=== PATIENT | female | born 1960 | race African-American/Black ===

== ENCOUNTER 2018-10-12 22:31 | Inpatient (IN) ==
[2018-10-12] MEDS ORDERED: hydrALAZINE 20 MG/1 ML VIAL IV STA (23:03)
[2018-10-12] MEDS ORDERED: LABETALOL 20 MG/4 ML SYRINGE IV STA (23:03)
[2018-10-13] MEDS ORDERED: ACETAMINOPHEN 325 MG TABLET PO PRN (00:17)
[2018-10-13] MEDS ORDERED: ONDANSETRON 4 MG/2 ML VIAL IV PRN (00:17)
[2018-10-13] MEDS ORDERED: LABETALOL 20 MG/4 ML SYRINGE IV PRN (01:51)
[2018-10-13] MEDS ORDERED: GLUCAGON 1 MG VIAL IM PRN (02:33)
[2018-10-13] MEDS ORDERED: DEXTROSE 50% 25 GM/50 ML VIAL IV PRN (02:33)
[2018-10-13] MEDS: LEVALBUTEROL 1.25 MG/3 ML NEB RESP TX SCH ×4 (02:37→19:36)
[2018-10-13 07:14] LABS: Hematocrit 41.6 VOL% (35.7-47.0); Hemoglobin 12.9 GM/DL (12.0-16.0); Immature Granulocytes % 0.6 %; Immature Granulocytes Absolute 0.05 #; Lymphocytes # 0.9 10*3/uL (1.4-4.0); Mean Corpuscular Volume 87.4 FL (87-102); Monocytes % 1.8 % (1.7-12.7); Neutrophils % 85.6 % (38.7-73.9); Platelet Count 288 T/CUMM (130-400); Red Blood Count 4.76 MC/CUMM (3.8-5.5); Red Cell Distribution Width 13.2 % (9.3-17.3); White Blood Count 7.9 T/CUMM (4-12)
[2018-10-13 07:44] LABS: Albumin 2.9 G/DL (3.4-5.0); Bilirubin,Total 0.7 MG/DL (0.2-1.0); Osmolality,Calculated 289.3 MOS/KG (273-304); Thyroid Stimulating Hormone 0.169 uIU/ml (0.358-3.74); Total Protein 6.7 G/DL (6.4-8.3)
[2018-10-13] MEDS ORDERED: ENOXAPARIN 40 MG/0.4 ML SYRINGE SUBCUT SCH (09:00)
[2018-10-13] MEDS: FUROSEMIDE 20 MG TABLET PO SCH ×2 (09:50→22:09)
[2018-10-13] MEDS: INSULIN REGULAR 100 UNIT/ML SUBCUT SCH ×4 (09:50→22:10)
[2018-10-13] MEDS: PANTOPRAZOLE 40 MG TABLET PO SCH (09:50)
[2018-10-13] MEDS: SPIRONOLACTONE 50 MG TABLET PO SCH ×2 (09:50→22:09)
[2018-10-13] MEDS: DIGOXIN 0.25 MG TABLET PO SCH (09:51)
[2018-10-13] MEDS: amLODIPine 10 MG TABLET PO SCH (09:51)
[2018-10-13] MEDS: THEOPHYLLINE ER (24 HR) 400 MG TABLET PO SCH ×2 (09:51→22:08)
[2018-10-13] MEDS: FLUTICASONE 50 MCG NASAL SPRAY 16 GM BOTTLE BOTH NARES SCH (14:57)
[2018-10-13] MEDS: RIVAROXABAN 20 MG TABLET PO SCH (18:02)
[2018-10-13] MEDS: traZODone 50 MG TABLET PO SCH (22:08)
[2018-10-14] MEDS: LEVALBUTEROL 1.25 MG/3 ML NEB RESP TX SCH ×4 (00:18→19:21)
[2018-10-14] MEDS: SPIRONOLACTONE 50 MG TABLET PO SCH ×2 (09:04→21:59)
[2018-10-14] MEDS: FUROSEMIDE 20 MG TABLET PO SCH ×2 (09:04→23:16)
[2018-10-14] MEDS: THEOPHYLLINE ER (24 HR) 400 MG TABLET PO SCH ×2 (09:04→22:00)
[2018-10-14] MEDS: PANTOPRAZOLE 40 MG TABLET PO SCH (09:05)
[2018-10-14] MEDS: DIGOXIN 0.25 MG TABLET PO SCH (09:05)
[2018-10-14] MEDS: amLODIPine 10 MG TABLET PO SCH (09:05)
[2018-10-14] MEDS: FLUTICASONE 50 MCG NASAL SPRAY 16 GM BOTTLE BOTH NARES SCH (09:05)
[2018-10-14] MEDS: METOPROLOL TARTRATE 25 MG TABLET PO SCH ×2 (09:07→21:59)
[2018-10-14] MEDS: INSULIN REGULAR 100 UNIT/ML SUBCUT SCH ×4 (09:08→23:16)
[2018-10-14] MEDS: RIVAROXABAN 20 MG TABLET PO SCH (17:32)
[2018-10-14] MEDS: traZODone 50 MG TABLET PO SCH (21:59)
[2018-10-15] MEDS: LEVALBUTEROL 1.25 MG/3 ML NEB RESP TX SCH ×3 (00:39→13:45)
[2018-10-15 06:03] LABS: Calcium 8.8 MG/DL (8.5-10.1); Osmolality,Calculated 282.3 MOS/KG (273-304)
[2018-10-15] MEDS: INSULIN REGULAR 100 UNIT/ML SUBCUT SCH ×2 (10:10→16:35)
[2018-10-15] MEDS: FUROSEMIDE 20 MG TABLET PO SCH ×2 (10:11→10:15)
[2018-10-15] MEDS: DIGOXIN 0.25 MG TABLET PO SCH (10:11)
[2018-10-15] MEDS: amLODIPine 10 MG TABLET PO SCH (10:11)
[2018-10-15] MEDS: PANTOPRAZOLE 40 MG TABLET PO SCH (10:11)
[2018-10-15] MEDS: THEOPHYLLINE ER (24 HR) 400 MG TABLET PO SCH (10:12)
[2018-10-15] MEDS: SPIRONOLACTONE 50 MG TABLET PO SCH (10:12)
[2018-10-15] MEDS: METOPROLOL TARTRATE 25 MG TABLET PO SCH (10:12)
[2018-10-15] MEDS: FLUTICASONE 50 MCG NASAL SPRAY 16 GM BOTTLE BOTH NARES SCH (10:13)
[2018-10-15 11:52] VITALS: BP 110/65
== END 2018-10-15 13:50 | disposition home health service (06) | DRG 309 ==
LOC: N.ED 22:31 → N.EDINP 22:31 → N.TELEN 10-13 00:50
PROVIDERS: ADMIT Internal Medicine; ATTEND Internal Medicine